=== PATIENT | female | born 1965 | race Caucasian/White ===

== ENCOUNTER 2018-05-06 23:19 | Emergency (ER) | payer OTHER | END 2018-05-06 23:32 | disposition left against medical advice (07) | LOC: ED 23:19 | DX: Z53.21 Procedure and treatment not carried out due to patient leaving prior to being seen by health care provider (principal) | CPT/HCPCS: 99281 ==

== ENCOUNTER 2022-09-25 20:41 | Emergency (ER) | payer BC, OTHER ==
[2022-09-25 20:58] VITALS: BP 138/66
--- NOTE | 2022-09-25 21:30 | ERPHSYRPT ---
- History of Present Illness Time Seen by Provider: 09/25/22 20:50 Historian: patient Exam Limitations: no limitations Patient Subjective Stated Complaint: pt reports dental pain/swelling for one week, reports that her right lower molar had a dental cap and it fell off, st ates she has not seen her dentist due to her work schedule. Triage Nursing Assessment: pt is aox3, pt speech is slow but appropriate, pupils perrl, afebrile, resps easy and non labored, cap refill < 3 seconds, radial pulses strong, pt skin pink warm dry. mild swelling noted to the right jaw, no obvious injury or deformity is noted. no pedal edema appreciated. Allergies/Adverse Reactions: No Known Drug Allergies Allergy (Unverified 09/25/22 20:57) Home Medications: PARoxetine HCL [Paxil] 60 mg PO DAILY 09/25/22 [History] Quetiapine Fumarate [Seroquel] 150 mg PO HS 09/25/22 [History] Ropinirole 2Mg [Requip 2Mg Tab] 2 mg PO HS 09/25/22 [History] clonazePAM [Klonopin] 0.5 mg PO TID 09/25/22 [History] modafiniL [Provigil] 200 mg PO QAM 09/25/22 [History] Hx Tetanus, Diphtheria Vaccination/Date Given: No Hx Influenza Vaccination/Date Given: Yes Hx Pneumococcal Vaccination/Date Given: No Immunizations Up to Date: No Travel Risk - International Travel Have you traveled outside of the country in past 3 weeks: No - Coronavirus Screening Are you exhibiting any of the following symptoms?: No Close contact with a COVID-19 positive Pt in past 14-21 Days: No - Vaccine Status Have you recieved a Covid-19 vaccination: No - Review of Systems Constitutional: No Symptoms, No Fever, No Chills Eyes: No Symptoms Ears, Nose, & Throat: No Symptoms Respiratory: No Symptoms, No Cough, No Dyspnea Cardiac: No Symptoms, No Chest Pain, No Edema, No Syncope Abdominal/Gastrointestinal: No Abdominal Pain, No Nausea, No Vomiting, No Diarrhea Genitourinary Symptoms: No Dysuria Musculoskeletal: No Back Pain, No Neck Pain Skin: No Rash Neurological: No Dizziness, No Focal Weakness, No Sensory Changes Psychological: No Symptoms Endocrine: No Symptoms Hematologic/Lymphatic: No Symptoms Immunological/Allergic: No Symptoms All Other Systems: Reviewed and Negative - Past Medical History Pertinent Past Medical History: No - Past Surgical History Past Surgical History: Yes Musculoskeletal: Orthopedic Surgery Other Surgical History: ORIF 90s. dental implants - Social History Smoking Status: Never smoker Exposure to second hand smoke: No Drug Use: none Patient Lives Alone: No - Nursing Vital Signs Nursing Vital Signs: Initial Vital Signs Temperature 97.6 F 09/25/22 20:42 Pulse Rate 82 09/25/22 20:42 Respiratory Rate 20 09/25/22 20:42 Blood Pressure 138/66 09/25/22 20:42 O2 Sat by Pulse Oximetry 97 09/25/22 20:42 Pain Scale Pain Intensity 0 - Physical Exam General Appearance: no apparent distress, alert Eye Exam: PERRL/EOMI, eyes nml inspection Ears, Nose, Throat Exam: normal ENT inspection, moist mucous membranes Neck Exam: normal inspection, non-tender, supple, full range of motion Respiratory Exam: normal breath sounds, lungs clear, airway intact, No respiratory distress Cardiovascular Exam: regular rate/rhythm, normal heart sounds, normal peripheral pulses Gastrointestinal/Abdomen Exam: soft, No tenderness, No mass Back Exam: normal inspection, No CVA tenderness, No vertebral tenderness Extremity Exam: normal inspection, normal range of motion Neurologic Exam: alert, oriented x 3, cooperative, normal mood/affect, sensation nml, No motor deficits Skin Exam: normal color, warm, dry Lymphatic Exam: No adenopathy SpO2 Interpretation: normal SpO2: 97 O2 Delivery: Room Air - Departure Referrals: NANCY COOK [Primary Care Provider] - Follow up/PCP as directed
[2022-09-25 21:34] LABS: Absolute Neutrophil Ct (ANC) 3.25 x10^3/uL (1.4-6.9); BASOPHIL % 0.3 % (0.0-0.4); Basophil (Absolute #) 0.02 x10^3/uL (0-0.4); Eosinophil % 0.6 % (0.00-5.0); Eosinophil (Absolute #) 0.04 x10^3/uL (0-0.5); Hematocrit 40.2 % (35-47); Hemoglobin 13.1 g/dL (12.0-16.0); IMMATURE GRAN # 0.02 x10^3u/L (0.00-0.03); IMMATURE GRAN % 0.3 % (0.00-0.4); Lymphocyte (Absolute #) 2.35 x10^3/uL (1.0-4.6); Lymphocytes % 38.1 % (24.0-44.0); Mean Cell Volume 91.6 fL (78-100); Mean Corpuscular Hemoglobin 29.8 pg (26-32); Mean Corpuscular Hgb Concent. 32.6 g/dL (32-36); Mean Platelet Volume 8.7 fL (7.5-11.0); Monocyte (Absolute #) 0.48 x10^3/uL (0.0-1.3); Monocytes % 7.8 % (0.0-12.0); Neutrophil % 52.9 % (36.0-66.0); Platelet Count 255 x10^3/uL (150-450); Red Blood Count 4.39 x10^6/uL (4.1-5.4); Red Cell Distribution Width 11.9 % (11.5-14.0); White Blood Count 6.2 x10^3/uL (4.0-10.5)
--- NOTE | 2022-09-25 21:38 | ERPHSYRPT ---
- History of Present Illness Time Seen by Provider: 09/25/22 20:50 Source: patient Exam Limitations: no limitations Patient Subjective Stated Complaint: pt reports dental pain/swelling for one week, reports that her right lower molar had a dental cap and it fell off, state s she has not seen her dentist due to her work schedule. Triage Nursing Assessment: pt is aox3, pt speech is slow but appropriate, pupils perrl, afebrile, resps easy and non labored, cap refill < 3 seconds, radial pulses strong, pt skin pink warm dry. mild swelling noted to the right jaw, no obvious injury or deformity is noted. no pedal edema appreciated. Physician History: Patient is a 57-year-old female presents to our emergency department for evaluation of possible sepsis. Patient has a right dental abscess. She is currently being treated with clindamycin. Patient states since she developed the abscess she has been feeling somewhat tired and fatigued. 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 No fever. No nausea or vomiting. No rash. Patient currently on clindamycin. Patient denies pain. Patient voices no other complaints or concerns at this time. Portions of this note were created with voice recognition technology. There may be grammatical, spelling, punctuation or sound alike errors Timing/Duration: today Severity: moderate Modifying Factors: Improves With: nothing Associated Symptoms: denies symptoms Allergies/Adverse Reactions: No Known Drug Allergies Allergy (Unverified 09/25/22 20:57) Home Medications: PARoxetine HCL [Paxil] 60 mg PO DAILY 09/25/22 [History] Quetiapine Fumarate [Seroquel] 150 mg PO HS 09/25/22 [History] Ropinirole 2Mg [Requip 2Mg Tab] 2 mg PO HS 09/25/22 [History] clonazePAM [Klonopin] 0.5 mg PO TID 09/25/22 [History] modafiniL [Provigil] 200 mg PO QAM 09/25/22 [History] Hx Tetanus, Diphtheria Vaccination/Date Given: No Hx Influenza Vaccination/Date Given: Yes Hx Pneumococcal Vaccination/Date Given: No Immunizations Up to Date: No Travel Risk - International Travel Have you traveled outside of the country in past 3 weeks: No - Coronavirus Screening Are you exhibiting any of the following symptoms?: No Close contact with a COVID-19 positive Pt in past 14-21 Days: No - Vaccine Status Have you recieved a Covid-19 vaccination: No - Review of Systems Constitutional: No Symptoms, No Fever, No Chills Eyes: No Symptoms Ears, Nose, & Throat: No Symptoms Respiratory: No Symptoms, No Cough, No Dyspnea Cardiac: No Symptoms, No Chest Pain, No Edema, No Syncope Abdominal/Gastrointestinal: No Symptoms, No Abdominal Pain, No Nausea, No Vomiting, No Diarrhea Genitourinary Symptoms: No Symptoms, No Dysuria Musculoskeletal: No Symptoms, No Back Pain, No Neck Pain Skin: No Symptoms, No Rash Neurological: No Symptoms, No Dizziness, No Focal Weakness, No Sensory Changes Psychological: No Symptoms Endocrine: No Symptoms Hematologic/Lymphatic: No Symptoms Immunological/Allergic: No Symptoms All Other Systems: Reviewed and Negative - Past Medical History Pertinent Past Medical History: No - Past Surgical History Past Surgical History: Yes Musculoskeletal: Orthopedic Surgery Other Surgical History: ORIF 90s. dental implants - Social History Smoking Status: Never smoker Exposure to second hand smoke: No Drug Use: none Patient Lives Alone: No - Nursing Vital Signs Nursing Vital Signs: Initial Vital Signs Temperature 97.6 F 09/25/22 20:42 Pulse Rate 82 09/25/22 20:42 Respiratory Rate 20 09/25/22 20:42 Blood Pressure 138/66 09/25/22 20:42 O2 Sat by Pulse Oximetry 97 09/25/22 20:42 Pain Scale Pain Intensity 0 - Physical Exam General Appearance: no apparent distress, alert Eye Exam: PERRL/EOMI, eyes nml inspection Ears, Nose, Throat Exam: normal ENT inspection, TMs normal, pharynx normal, moist mucous membranes, other (Dental abscess tooth #30 patient currently on clindamycin) Neck Exam: normal inspection, non-tender, supple, full range of motion Respiratory Exam: normal breath sounds, lungs clear, No respiratory distress Cardiovascular Exam: regular rate/rhythm, normal heart sounds, normal peripheral pulses Gastrointestinal/Abdomen Exam: soft, normal bowel sounds, No tenderness, No mass Back Exam: normal inspection, normal range of motion, No CVA tenderness, No vertebral tenderness Extremity Exam: normal inspection, normal range of motion, pelvis stable Neurologic Exam: alert, oriented x 3, cooperative, normal mood/affect, nml cerebellar function, nml station & gait, sensation nml, No motor deficits Skin Exam: normal color, warm, dry, No rash Lymphatic Exam: No adenopathy SpO2 Interpretation: normal SpO2: 97 O2 Delivery: Room Air - Course Nursing assessment & vital signs reviewed: Yes EKG Interpreted by Me: RATE (80), Sinus Rhythm, NORMAL AXIS, NORMAL INTERVALS Ordered Tests: Active Orders 24 hr Category Date Time Status Ham Facer STAT Care 09/25/22 21:18 Active Clean Catch Urine Specimen STAT Care 09/25/22 21:35 Active EKG-ER Only STAT Care 09/25/22 21:18 Active IV Insertion STAT Care 09/25/22 21:18 Active Pulse Oximetry (ED) STAT Care 09/25/22 21:18 Active CBC W DIFF Stat Lab 09/25/22 21:30 Completed CMP Stat Lab 09/25/22 21:30 Completed NT PRO BNPII Stat Lab 09/25/22 21:30 Completed TROPONIN Q4H Lab 09/25/22 21:30 Completed TROPONIN Q4H Lab 09/26/22 01:30 Ordered TROPONIN Q4H Lab 09/26/22 05:30 Ordered Urine Triage Profile Stat Lab 09/25/22 21:36 Completed Lab/Rad Data: Laboratory Result Diagrams 09/25/22 21:30 09/25/22 21:30 Laboratory Results 09/25/22 09/25/22 09/25/22 Range/Units 21:36 21:30 21:30 WBC (4.0-10.5) x10^3/uL RBC (4.1-5.4) x10^6/uL Hgb (12.0-16.0) g/dL Hct (35-47) % MCV (78-100) fL MCH (26-32) pg MCHC (32-36) g/dL RDW (11.5-14.0) % Plt Count (150-450) x10^3/uL MPV (7.5-11.0) fL Gran % (36.0-66.0) % Immature Gran % (Auto) (0.00-0.4) % Nucleat RBC Rel Count (0.00-0.1) % Eos # (Auto) (0-0.5) x10^3/uL Immature Gran # (Auto) (0.00-0.03) x10^3u/L Absolute Lymphs (auto) (1.0-4.6) x10^3/uL Absolute Monos (auto) (0.0-1.3) x10^3/uL Absolute Nucleated RBC (0.00-0.01) x10^3u/L Lymphocytes % (24.0-44.0) % Monocytes % (0.0-12.0) % Eosinophils % (0.00-5.0) % Basophils % (0.0-0.4) % Absolute Granulocytes (1.4-6.9) x10^3/uL Basophils # (0-0.4) x10^3/uL Sodium (137-145) mmol/L Potassium (3.5-5.1) mmol/L Chloride (98-107) mmol/L Carbon Dioxide (22-30) mmol/L Anion Gap (5-15) MEQ/L BUN (7-17) mg/dL Creatinine (0.52-1.04) mg/dL Estimated GFR ML/MIN Glucose (74-106) mg/dL Calcium (8.4-10.2) mg/dL Total Bilirubin (0.2-1.3) mg/dL AST (14-36) U/L ALT (0-35) U/L Alkaline Phosphatase (38-126) U/L Troponin I < 0.012 (0.000-0.034) ng/mL NT-Pro-B Natriuret Pep 79.9 (<300) pg/mL Serum Total Protein (6.3-8.2) g/dL Albumin (3.5-5.0) g/dL Urine Opiates Level NEGATIVE (NEGATIVE) Ur Methadone NEGATIVE (NEGATIVE) Urine Barbiturates NEGATIVE (NEGATIVE) Ur Phencyclidine (PCP) NEGATIVE (NEGATIVE) Urine Amphetamine NEGATIVE (NEGATIVE) U Benzodiazepine Level NEGATIVE (NEGATIVE) Urine Cocaine NEGATIVE (NEGATIVE) Urine Marijuana (THC) NEGATIVE (NEGATIVE) 09/25/22 09/25/22 Range/Units 21:30 21:30 WBC 6.2 (4.0-10.5) x10^3/uL RBC 4.39 (4.1-5.4) x10^6/uL Hgb 13.1 (12.0-16.0) g/dL Hct 40.2 (35-47) % MCV 91.6 (78-100) fL MCH 29.8 (26-32) pg MCHC 32.6 (32-36) g/dL RDW 11.9 (11.5-14.0) % Plt Count 255 (150-450) x10^3/uL MPV 8.7 (7.5-11.0) fL Gran % 52.9 (36.0-66.0) % Immature Gran % (Auto) 0.3 (0.00-0.4) % Nucleat RBC Rel Count 0.0 (0.00-0.1) % Eos # (Auto) 0.04 (0-0.5) x10^3/uL Immature Gran # (Auto) 0.02 (0.00-0.03) x10^3u/L Absolute Lymphs (auto) 2.35 (1.0-4.6) x10^3/uL Absolute Monos (auto) 0.48 (0.0-1.3) x10^3/uL Absolute Nucleated RBC 0.00 (0.00-0.01) x10^3u/L Lymphocytes % 38.1 (24.0-44.0) % Monocytes % 7.8 (0.0-12.0) % Eosinophils % 0.6 (0.00-5.0) % Basophils % 0.3 (0.0-0.4) % Absolute Granulocytes 3.25 (1.4-6.9) x10^3/uL Basophils # 0.02 (0-0.4) x10^3/uL Sodium 139 (137-145) mmol/L Potassium 3.4 L (3.5-5.1) mmol/L Chloride 103 (98-107) mmol/L Carbon Dioxide 27 (22-30) mmol/L Anion Gap 12.6 (5-15) MEQ/L BUN 8 (7-17) mg/dL Creatinine 0.83 (0.52-1.04) mg/dL Estimated GFR > 60.0 ML/MIN Glucose 97 (74-106) mg/dL Calcium 8.8 (8.4-10.2) mg/dL Total Bilirubin 0.50 (0.2-1.3) mg/dL AST 29 (14-36) U/L ALT 16 (0-35) U/L Alkaline Phosphatase 104 (38-126) U/L Troponin I (0.000-0.034) ng/mL NT-Pro-B Natriuret Pep (<300) pg/mL Serum Total Protein 7.4 (6.3-8.2) g/dL Albumin 4.1 (3.5-5.0) g/dL Urine Opiates Level (NEGATIVE) Ur Methadone (NEGATIVE) Urine Barbiturates (NEGATIVE) Ur Phencyclidine (PCP) (NEGATIVE) Urine Amphetamine (NEGATIVE) U Benzodiazepine Level (NEGATIVE) Urine Cocaine (NEGATIVE) Urine Marijuana (THC) (NEGATIVE) - Progress Progress: improved Progress Note: Patient is a 57-year-old female presents for emergency department for evaluation of suspected sepsis. Patient is currently on antibiotics for a dental abscess. Patient was feeling unwell and concerned that the dental infection had spread to her blood. Patient has been afebrile. No nausea vomiting. Physical exam reveals a right jaw dental abscess involving tooth #30. Physical exam otherwise negative. Work-up reveals a slight hypokalemia at 3.4. This may be remedied with a banana or a meal. No indication for medicinal management. EKG normal sinus rhythm. States CBC within normal limits. BNP negative. Troponin negative. Urine triage negative. No imaging studies performed. Patient feels well. She appears to be good spirits. She voices no other complaints or concerns at this time. Portions of this note were created with voice recognition technology. There may be grammatical, spelling, punctuation or sound alike errors Patient's presenting problem was acute. Complexity of problem addressed was moderate. Acute dental infection complicated by feeling of malaise and fatigue. No critical care time. Complexity of data reviewed and analyzed is moderate. Test ordered. Test reviewed and analyzed. Risk of complication and or risk of morbidity/mortality of patient management is minimal. No specific therapy rendered. No controlled medications administered. No hospitalization required. No prescriptions prescribed. Patient discharged home. She feels well. Vital stable. Time spent to discha rge patient is approximately 10 minutes. No social determinants of health present that may impede follow-up. Patient voices no other complaints or concerns at this time. Portions of this note were created with voice recognition technology. There may be grammatical, spelling, punctuation or sound alike errors 04/12/23 23:26 Counseled pt/family regarding: lab results, diagnosis, need for follow-up - Departure Departure Disposition: Home Clinical Impression: Dental abscess, Well adult health check, Malaise and fatigue Condition: Stable Critical Care Time: No Referrals: NANCY COOK [ACTIVE STAFF] - Follow up/PCP as directed Additional Instructions: Discharge/Care Plan DEEDEE ARGUETA was seen on 09/25/22 in the Emergency Room. The patient was counseled regarding Diagnosis,Lab results, Imaging studies, need for follow up and when to return to the Emergency Room. Prescriptions given: Discharge Note I have spoken with the patient and/or caregivers. I have explained the patient's condition, diagnosis and treatment plan based on the information available to me at this time. I have answered the patient's and/or caregiver's questions and addressed any concerns. The patient and/or caregivers have as good understanding of the patient's diagnosis, condition and treatment plan as can be expected at this point. The vital signs have been stable. The patient's condition is stable and appropriate for discharge from the emergency department. The patient will pursue further outpatient evaluation with the primary care physician or other designated or consulting physician as outlined in the discharge instructions. The patient and/or caregivers are agreeable to this plan of care and follow-up instructions have been explained in detail. The patient and/or caregivers have received these instruction. The patient/and or caregivers are aware that any significant change in condition or worsening of symptoms should prompt an immediate return to this or the closest emergency department or call 911.
[2022-09-25 21:48] LABS: ALBUMIN 4.1 g/dL (3.5-5.0); ALKALINE PHOSPHATASE 104 U/L (38-126); ANION GAP 12.6 MEQ/L (5-15); BLOOD UREA NITROGEN 8 mg/dL (7-17); CHLORIDE 103 mmol/L (98-107); Calcium 8.8 mg/dL (8.4-10.2); Carbon Dioxide 27 mmol/L (22-30); Creatinine 1 0.83 mg/dL (0.52-1.04); EST GLOMERULAR FILTRATION RATE > 60.0 ML/MIN; Glucose 97 mg/dL (74-106); Potassium 3.4 mmol/L (3.5-5.1); SGOT/AST 29 U/L (14-36); SGPT/ALT 16 U/L (0-35); SODIUM 139 mmol/L (137-145); Total Protein 7.4 g/dL (6.3-8.2)
[2022-09-25 22:26] LABS: Barbiturate,Urine NEGATIVE (NEGATIVE); Cocaine,Urine NEGATIVE (NEGATIVE); Methadone,Urine NEGATIVE (NEGATIVE); Opiate,Urine NEGATIVE (NEGATIVE); PCP,Urine NEGATIVE (NEGATIVE); THC,Urine NEGATIVE (NEGATIVE)
[2022-09-25 23:02] LABS: Amphetamine,Urine NEGATIVE (NEGATIVE); Benzodiazepine,Urine NEGATIVE (NEGATIVE)
[2022-09-25 23:28] VITALS: PULSE 80
[2022-09-25 23:31] VITALS: O2SAT 97
== END 2022-09-25 23:28 | disposition home or self-care (01) ==
LOC: ED 20:41
DX: K04.7 Periapical abscess without sinus (principal); Z03.89 Encounter for observation for other suspected diseases and conditions ruled out; R53.81 Other malaise; R53.83 Other fatigue; Z79.899 Other long term (current) drug therapy; Z28.310 Unvaccinated for COVID-19
CPT/HCPCS: 36000; 36415; 80053; 80307; 83880; 84484; 85025; 93005; 93041; 94760; 99284